=== PATIENT | female | born 1965 | race Caucasian/White ===

== ENCOUNTER 2023-12-23 08:46 | Outpatient (CLI) | payer BC | END 2023-12-23 08:47 | disposition home or self-care (01) | LOC: SCSMRI 08:46 | PROVIDERS: ATTEND Orthopaedic Surgery | DX: M48.061 Spinal stenosis, lumbar region without neurogenic claudication (principal); M47.815 Spondylosis without myelopathy or radiculopathy, thoracolumbar region; M47.816 Spondylosis without myelopathy or radiculopathy, lumbar region; M47.817 Spondylosis without myelopathy or radiculopathy, lumbosacral region | CPT/HCPCS: 72148 ==